=== PATIENT | female | born 1980 | race African-American/Black ===

== ENCOUNTER 2023-12-20 10:54 | Emergency (ER) | payer OTHER ==
[~2023-12-20] VITALS: Ht 170.2 cm; Wt 71.9 kg
[2023-12-20] MEDS ORDERED: VENLAFAXINE HC100 MG (11:35)
[2023-12-20] MEDS ORDERED: ALPRAZOLAM0.5 M1 PO (11:39)
[2023-12-20 11:50] VITALS: PULSE 70; RESP 16; TEMP 98; O2SAT 100
== END 2023-12-20 11:50 | disposition home or self-care (01) ==
LOC: FSED 11:02
DX: F41.9 Anxiety disorder, unspecified (principal); F32.A Depression, unspecified; R21 Rash and other nonspecific skin eruption; F17.210 Nicotine dependence, cigarettes, uncomplicated
CPT/HCPCS: 99283

== ENCOUNTER 2024-06-02 02:08 | Emergency (ER) | payer MEDICAID, OTHER ==
[~2024-06-02] VITALS: Ht 170.2 cm; Wt 73.9 kg
[~2024-06-02 02:08] MED LIST: ALPRAZOLAM0.5 M1 PO; VENLAFAXINE HC100 MG
[2024-06-02 02:21] VITALS: PULSE 82; RESP 18; TEMP 99
[2024-06-02] MEDS ORDERED: ADULT GLYCERIN1 EACH PR (02:46)
[2024-06-02] MEDS ORDERED: ENEMA READY-TO133 ML PR (02:46)
[2024-06-02 03:15] VITALS: BP 120/74; PULSE 82; RESP 18; TEMP 99; O2SAT 100
== END 2024-06-02 03:15 | disposition home or self-care (01) ==
LOC: FSED 02:12
DX: K59.00 Constipation, unspecified (principal); I10 Essential (primary) hypertension; E78.00 Pure hypercholesterolemia, unspecified; F41.9 Anxiety disorder, unspecified; F32.A Depression, unspecified; F17.210 Nicotine dependence, cigarettes, uncomplicated
CPT/HCPCS: 99282